=== PATIENT | female | born 1990 | race Caucasian/White ===

== ENCOUNTER 2017-09-28 17:23 | Emergency (ER) | payer SELFPAY ==
[2017-09-28 17:33] VITALS: BP 131/89; TEMP 98.4; BMI 20.1
[2017-09-28 18:22] VITALS: PULSE 105
[2017-09-28] MEDS ORDERED: ALBUTEROL SO4 2.5/IPRATROPIUM 0.5 INH SOL 3 ML VIAL.NEB. NEB ONE ×2 (18:44→19:01)
--- NOTE | 2017-09-28 18:45 | PDOC ---
History of Present Illness - General History Source: Patient Exam Limitations: No Limitations - History of Present Illness Initial Comments: 09/28/17 18:52 The patient is a 27 year old female, with a significant past medical history of asthma, who presents to the emergency department sent from Urgent Care for evaluation of persistent cough, wheezing, and shortness of breath for several days. The patient reports her symptoms are similar to her asthma exacerbation episodes in the past. Patient reports she was so short of breath earlier that she could barely speak. Patient reports she was given 3 treatments while at Urgent Care with mild relief. She reports associated chest tightness, but denies any diaphoresis, palpitations, or lower extremity edema. Patient reports she was taking Advair and an inhaler for her symptoms, however, she ran out of her medications. She denies any history of oral steroids, hospitalizations, or intubations for her asthma. She denies any sore throat, nasal congestion, runny nose, fever, chills, headache, or dizziness. She denies any nausea or vomiting. She denies any recent travel or sick contacts. Allergies: NKDA Past Surgical History: Appendectomy. Social History: Non smoker. No ETOH or recreational drug use. <Leonides Witt - Last Filed: 09/28/17 18:52> <Salbador Vann - Last Filed: 09/29/17 06:38> <Taj Alfred - Last Filed: 10/02/17 08:00> - General Chief Complaint: Respiratory Stated Complaint: SENT FROM URGENT CARE, COUGH Time Seen by Provider: 09/28/17 18:44 Past History <Leonides Witt - Last Filed: 09/28/17 18:52> <Salbador Vann - Last Filed: 09/29/17 06:38> - Past Medical History Asthma: Yes COPD: No - Surgical History Appendectomy: Yes - Suicide/Smoking/Psychosocial Hx Smoking History: Never smoked Have you smoked in the past 12 months: No Information on smoking cessation initiated: No Hx Alcohol Use: No Drug/Substance Use Hx: No Substance Use Type: None <Taj Alfred - Last Filed: 10/02/17 08:00> - Past Medical History Allergies/Adverse Reactions: Allergies Allergy/AdvReac Type Severity Reaction Status Date / Time No Known Allergies Allergy Verified 09/28/17 17:24 Home Medications: Ambulatory Orders Albuterol Sulfate Inhaler - [Ventolin Hfa Inhaler -] 1 - 2 inh PO PRN PRN predniSONE [Deltasone -] 5 mg PO ASDIR #78 tab 09/28/17 Review of Systems - Review of Systems Able to Perform ROS?: Yes Comments:: 09/28/17 18:53 CONSTITUTIONAL: Absent: fever, no chills, no fatigue EYES: Absent: visual changes ENT: Absent: ear pain, no sore throat, no nasal congestion or runny nose. CARDIOVASCULAR: Present: chest tightness Absent: no palpitations RESPIRATORY: Present: cough, SOB, wheezing GI: Absent: abdominal pain, no nausea, no vomiting, no constipation, no diarrhea GENITOURINARY: Absent: dysuria, no frequency, no hematuria MUSKULOSKELETAL: Absent: back pain, no arthralgia, no myalgia SKIN: Absent: rash NEURO: Absent: headache <Leonides Witt - Last Filed: 09/28/17 18:52> *Physical Exam - Vital Signs Last Vital Signs Temp Pulse Resp BP Pulse Ox 98.4 F 105 H 20 131/89 93 L 09/28/17 17:24 09/28/17 18:21 09/28/17 17:24 09/28/17 17:24 09/28/17 18:21 - Physical Exam Comments: 09/28/17 18:53 GENERAL: Well-appearing, well-nourished. No apparent distress. HEENT: Normocephalic, atraumatic. PERRL, EOM intact. CARDIOVASCULAR: Normal S1, S2. Regular rate and rhythm. PULMONARY: Not tachypneic. Mildly dyspneic with diffuse wheezing bilaterally, moderate- severe. ABDOMEN: Soft, non-distended, non-tender. EXTREMITIES: Normal ROM in all four extremities. No gross deformities. SKIN: Warm, dry. No rash NEUROLOGICAL: No focal neurological deficits. <Leonides Witt - Last Filed: 09/28/17 18:52> - Vital Signs Last Vital Signs Temp Pulse Resp BP Pulse Ox 98.4 F 105 H 20 131/89 93 L 09/28/17 17:24 09/28/17 18:21 09/28/17 17:24 09/28/17 17:24 09/28/17 18:21 <Salbador Vann - Last Filed: 09/29/17 06:38> - Vital Signs Last Vital Signs Temp Pulse Resp BP Pulse Ox 98.4 F 105 H 20 131/89 93 L 09/28/17 17:24 09/28/17 18:21 09/28/17 17:24 09/28/17 17:24 09/28/17 18:21 <Taj Alfred - Last Filed: 10/02/17 08:00> ED Treatment Course - ADDITIONAL ORDERS Additional order review: Laboratory Results 09/28/17 20:23 Urine HCG, Qual Negative - RADIOLOGY Radiology Studies Ordered: Category Date Time Status CHEST PA & LAT [RAD] Stat Radiology 09/28/17 20:15 Ordered - Medications Given in the ED: ED Medications Discontinued Medications Generic Name Dose Route Start Last Admin Trade Name Freq PRN Reason Stop Dose Admin Albuterol/Ipratropium 1 amp 09/28/17 18:44 09/28/17 19:03 Duoneb - NEB 09/28/17 18:45 1 amp ONCE ONE Administration Dexamethasone Sodium Phosphate 10 mg 09/28/17 20:15 09/28/17 20:23 Decadron Injection - IM 09/28/17 20:16 10 mg ONCE ONE Administration <Salbador Vann - Last Filed: 09/29/17 06:38> Medical Decision Making - Medical Decision Making 09/29/17 06:38 [id number], as read by me THOMAS Steroids, bronchodilators a the time of discharge, no hypoxia, ambulatory in ED without distress <Salbador Vann - Last Filed: 09/29/17 06:38> - Medical Decision Making Patient is a mild asthmatic, requiring no maintenance medication, and without a significant exacerbation in over 2 years. She has been wheezing for several days and presented to urgent care center today, given 3 nebulizer treatments, wheezing persisted, and she was sent to the emergency room. Although she is improved, wheezing is still present. Her respiratory status, however, is stable. She is not dyspneic, and O2 saturation is adequate. Repeat nebulizer was administered. Patient being observed. Signed out to Dr. Vann at 7 PM pending further medical evaluation and treatment. <Taj Alfred - Last Filed: 10/02/17 08:00> *DC/Admit/Observation/Transfer - Attestations Scribe Attestion: 09/28/17 18:53 Documentation prepared by Leonides Witt, acting as medical office coordinator for Taj Ritchie MD. <Leonides Witt - Last Filed: 09/28/17 18:52> <Salbador Vann - Last Filed: 09/29/17 06:38> <Taj Alfred - Last Filed: 10/02/17 08:00> Diagnosis at time of Disposition: Acute asthma - Discharge Dispostion Disposition: HOME Condition at time of disposition: Stable - Prescriptions Prescriptions: predniSONE [Deltasone -] 5 mg PO ASDIR #78 tab
[2017-09-28] MEDS ORDERED: DEXAMETHASONE SOD PHOSPHATE 10 MG/1 ML VIAL IM ONE (20:15)
[2017-09-28] MEDS ORDERED: DEXAMETHASONE SOD PHOSPHATE 10 MG/1 ML VIAL ONE (20:15)
== END 2017-09-28 21:16 | disposition home or self-care (01) ==
LOC: FER 17:23
CPT/HCPCS: 71046-TC-FY; 84703; 99282-25; J1100